=== PATIENT | female | born 1945 | race Caucasian/White ===

== ENCOUNTER 2025-07-23 13:05 | Emergency (ER) | payer MEDICARE, SELFPAY ==
--- NOTE | ~2025-07-23 | XR_ITS ---
EXAMINATION: XR chest 1V portable COMPARISON: No comparisons available. HISTORY: weakness, shortness of breath FINDINGS: COPD changes otherwise the lungs are clear No pneumothorax. Heart is normal size. Overlying artifact limits evaluation, probable large hiatal hernia. Bony thorax no acute abnormality. Miscellaneous: None Impression: No acute cardiopulmonary abnormality. Reviewed, dictated and finalized at location P. AL WORK MANAGER Impression: No acute cardiopulmonary abnormality.
[2025-07-23 13:14] VITALS: BP 90/51; PULSE 101; RESP 20; TEMP 37.1; O2SAT 94
--- OUTSIDE RECORDS SUMMARY | 2025-07-23 15:09 | XMS_ITS | Encounter Summary ---
Author Organization [employer] Address [address] [place] [address] Care Team Providers Care Injection Mold Tooling Technician Name Role Phone Marco A Higginbotham MD Primary Care Provider [phone]- [phone] Encounter Details Date Type Department Care Team (Late st Contact Info) Description 07/06/2005 Outpatient [facility] [place] [facility] [employer] [address] & [place] [address] Marco A Higginbotham MD [address] [place], [place] [id number] ELB/FOREARM/WRST INJURY NOS (Primary Dx) Social History Tobacco Use Types Packs/Day Years Used Date Smoking Tobacco: Never Assessed Comments Unknown Sex and Gender Information Value Date Recorded Sex Assigned at Not on file 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
--- OUTSIDE RECORDS SUMMARY | 2025-07-23 15:09 | XMS_ITS | Clinical Summary ---
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
[2025-07-23 15:40] VITALS: BP 113/70; PULSE 72; RESP 14; O2SAT 95
[2025-07-23 16:15] VITALS: BP 138/65; PULSE 71; RESP 20; O2SAT 95
[2025-07-23 16:57] LABS: Hematocrit 40.7 % (37.0-47.0); Hemoglobin 13.2 g/dL (12.0-15.0); Immature Granulocyte Percent A 0.4 % (0-0.5); Lymphocytes Absolute Auto 1.06 K/mm3 (0.9-3.2); Mean Corpuscular HGB Conc 32.4 g/dl (32-36); Mean Corpuscular Hemoglobin 30.0 pg (26-34); Mean Corpuscular Volume 92.5 fl (80-100); Nucleated Red Blood Cells Absolute Auto 0.000 K/mm3 (0.0-0.012); Nucleated Red Blood Cells Perc 0.0 % (0.0-0.2); Platelet Count Result 207 k/mm3 (150-375); Red Blood Count 4.40 M/mm3 (4.2-5.4); White Blood Count 8.4 K/mm3 (4.5-10.0)
[2025-07-23 17:07] LABS: Alanine Aminotransferase 14 U/L (6-35); Albumin Level 4.3 g/dL (3.5-5.1); Alkaline Phosphatase 63 U/L (38-126); Anion Gap 8 mmol/L (4-12); Aspartate Amino Transferase 29 U/L (14-36); Bilirubin,Total 0.7 mg/dL (0.2-1.3); Blood Urea Nitrogen 23 mg/dL (7-17); Calcium 9.6 mg/dL (8.4-10.2); Carbon Dioxide 20 mmol/L (22-30); Chloride 110 mmol/L (98-107); Estimated CRCL calculation 23 ml/min; Estimated Glomerular Filt Rate 33; Glucose 80 mg/dL (65-110); Potassium 4.1 mmol/L (3.4-5.0); Sodium 138 mmol/L (137-145); Total Protein 8.0 g/dL (6.3-8.2)
--- NOTE | 2025-07-23 17:16 | ECG_ITS ---
Test Date: 2025-07-23 17:34:14 Measurements Intervals [place] Rate: 76 P: 34 AL: 179 QRS: -8 QRSD: 88 T: 166 QT: 405 QTc: 457 Interpretive Statements SINUS RHYTHM LEFT VENTRICULAR HYPERTROPHY AND ST-T CHANGE T WAVE ABNORMALITY IN ANTEROLATERAL LEADS- CONSIDER ISCHEMIA ABNORMAL ECG No previous ECG available for comparison Electronically Signed On 07-23-2025 18:26:46 BSA OFFICER by Deepak Bryant D.O.
--- NOTE | 2025-07-23 17:16 | ED_ITS ---
HPI - Weakness General Chief complaint: Weakness Stated complaint: WEAKNESS Time Seen by Provider: 07/23/25 16:20 Source: patient and family Mode of arrival: wheelchair Limitations: no limitations History of Present Illness HPI Narrative: This is an 80-year-old female with history of CAD status post stents x7 who presents to the ED for weakness. Per daughters at bedside, patient had been complaining of sore throat for the past few days. They went to get her this morning to go shopping but she was apparently too weak to get around. She only walk about 5-10 steps before she felt like she did have the strength left to go. Patient also reports some intermittent shortness of breath. Denies fevers, chills. No known sick contacts. She is currently not on any medications and has not seen a physician in 7 years. Related Data Allergies Allergy/AdvReac Type Severity Reaction Status Date / Time bee venom protein (honey bee) Allergy Anaphylaxis Verified 07/23/25 13:06 tramadol Allergy Hives Verified 07/23/25 13:06 Review of Systems 2 Review of Systems: All systems reviewed & are unremarkable except as noted in HPI and below Exam 2 Narrative: APPEARANCE: No acute distress, nontoxic, resting in bed EYES: EOMI HEENT: Normocephalic, atraumatic, mild posterior oropharyngeal erythema RESPIRATORY: Diminished breath sounds with some scattered rales. No respiratory distress CARDIOVASCULAR: Regular rate and rhythm without murmurs rubs or gallops. ABDOMINAL: Soft, nontender, nondistended, no rebound or guarding MUSCULOSKELETAl: Moves all extremities. No clubbing, cyanosis or edema. NEURO: Awake and alert. Following commands, speech normal, no focal deficits SKIN:: Warm, dry. No rashes lesions or abrasions PSYCHIATRIC: Normal affect/mood, Course Vital Signs Vital signs: Vital Signs Temperature 98.7 F 07/23/25 13:14 Pulse Rate 101 H 07/23/25 13:14 Respiratory Rate 20 07/23/25 13:14 Blood Pressure 90/51 L 07/23/25 13:14 Pulse Oximetry 94 07/23/25 13:14 Temperature 98.7 F 07/23/25 13:14 Pulse Rate 80 07/23/25 18:05 Respiratory Rate 14 07/23/25 18:05 Blood Pressure 154/78 H 07/23/25 18:05 Pulse Oximetry 95 07/23/25 18:05 Oxygen Delivery Room Air 07/23/25 15:40 [facility] Narrative Medical decision making narrative: 80-year-old female Presenting for cough and shortness of breath with intermittent chest pain. On initial evaluation patient was in no acute distress afebrile, hemodynamic stable. Differentials include but are not limited to: ACS, CHF Exacerbation, COPD exacerbation, PE, PNA, PTX, bronchitis, viral syndrome, ACS Notable exam findings: Heart and lungs clear. Abdomen soft and nontender. Mild lower pharyngeal erythema I personally reviewed the patient's lab result. Notable lab findings: CBC without significant abnormalities. Creatinine elevated 1.5, no prior to compare. Troponin elevated at 0.05. COVID positive I personally reviewed the patient's images and interpret as follows: Chest x- ray: Normal cardiac silhouette, no consolidations, no pleural effusions, no pulmonary vascular congestion I personally reviewed the patient's EKGs: Normal sinus rhythm rate of 76, axis was, to inversions in anterolateral leads, no acute ST changes Patient is evidence of an NSTEMI which is likely secondary to her COVID. This may be a baseline troponin for her with there is no prior to compare. She does require Cardiology evaluation. However discussed with patient, and she has no desire to stay in the hospital at this time. She does demonstrate capacity and is understanding of the risks leaving at this time including irreversible damage to her, or even . Patient was sure that she is always welcome back to the ER if her symptoms are unchanged. Patient will be leaving AMA at this time. Differential Diagnosis Differential Diagnosis: ACS, CHF Exacerbation, COPD exacerbation, PE, PNA, PTX, bronchitis, viral syndrome, ACS Lab Data 07/23/25 16:50 07/23/25 16:50 Labs: Lab Results 07/23/25 Range/Units 16:50 WBC 8.4 (4.5-10.0) K/mm3 RBC 4.40 (4.2-5.4) M/mm3 Hgb 13.2 (12.0-15.0) g/dL Hct 40.7 (37.0-47.0) % MCV 92.5 (80-100) fl MCH 30.0 (26-34) pg MCHC 32.4 (32-36) g/dl RDW 14.3 (11.5-14.5) % Plt Count 207 (150-375) k/mm3 MPV 10.7 H (7.4-10.4) fl Immature Gran % (Auto) 0.4 (0-0.5) % Neut % (Auto) 73.4 H (45.5-73.1) % Lymph % (Auto) 12.6 L (18.3-44.2) % [place] % (Auto) 12.3 H (2.6-8.5) % Eos % (Auto) 0.2 (0-4.4) % Baso % (Auto) 1.1 (0.2-1.2) % Lymph # (Auto) 1.06 (0.9-3.2) K/mm3 [place] # (Auto) 1.0 H (0.1-0.6) K/mm3 Eos # (Auto) 0.0 (0-0.3) K/mm3 Baso # (Auto) 0.1 (0.0-0.1) K/mm3 Abs Immat Gran (auto) 0.03 (0.00-0.031) K/mm3 Absolute Neuts (auto) 6.2 (1.3-6.7) K/mm3 Absolute Nucleated RBC 0.000 (0.0-0.012) K/mm3 Nucleated RBC % 0.0 (0.0-0.2) % Sodium 138 (137-145) mmol/L Potassium 4.1 (3.4-5.0) mmol/L Chloride 110 H (98-107) mmol/L Carbon Dioxide 20 L (22-30) mmol/L Anion Gap 8 (4-12) mmol/L BUN 23 H (7-17) mg/dL Creatinine 1.50 H (0.7-1.0) mg/dL Estim Creat Clear Calc 23 ml/min Estimated GFR 33 L (59 - ) Glucose 80 (65-110) mg/dL Calcium 9.6 (8.4-10.2) mg/dL Total Bilirubin 0.7 (0.2-1.3) mg/dL AST 29 (14-36) U/L ALT 14 (6-35) U/L Alkaline Phosphatase 63 (38-126) U/L Troponin I 0.050 H* (0.000-0.034) ng/mL Total Protein 8.0 (6.3-8.2) g/dL Albumin 4.3 (3.5-5.1) g/dL Influenza A (RT-PCR) Negative (Negative) Influenza B (RT-PCR) Negative (Negative) RSV (RT-PCR) Negative (Negative) SARS-CoV-2 RNA (RT-PCR) Positive A (Negative) Imaging Data Radiologist's impression: ITS Impressions Chest X-Ray 07/23/25 17:28 Impression: No acute cardiopulmonary abnormality. Discharge Plan Discharge Clinical Impression: COVID-19, Non-ST elevation ID (NSTEMI) Patient Disposition: Left Against Medical Advice Condition: Stable Instructions: COVID-19 (Coronavirus Disease 2019) (ED) Additional Instructions: Please follow with Cardiology mohsen. Return to the ED for any new or worsening symptoms. For pain, discomfort or temperature greater than or equal to 100.8 ?F please alternate the following 2 medications as needed. First medication- acetaminophen/Tylenol- 1000mg every 6-8 hours as needed for above indications. Second medication- ibuprofen/Motrin-600mg every 6-8 hours as needed for above indication. Patient Language: Ukrainian Follow-up/Referrals: Niels Lui MD [Physician, Cardiology] PHYSICIAN,ASSISTANT PROFESSOR OF GEOGRAPHY [Primary Care Provider, Internal Medicine]
--- NOTE | 2025-07-23 17:28 | PC.NURSE ---
Lab called to add on ordered trop.
[2025-07-23 17:33] LABS: Influenza A QL RT-PCR Negative (Negative); Influenza B QL RT-PCR Negative (Negative); RSV RNA, RT-PCR Negative (Negative); SARS-CoV-2 RNA PCR Positive (Negative)
[2025-07-23] MEDS: ACETAMINOPHEN 500 MG TABLET 1000 MG PO (17:55)
[2025-07-23 18:00] LABS: Troponin I 0.050 ng/mL (0.000-0.034)
[2025-07-23 18:05] VITALS: BP 154/78; PULSE 80; RESP 14; O2SAT 95
--- OUTSIDE RECORDS SUMMARY | 2025-07-23 18:23 | XMS_ITS | Encounter Summary ---
Author Organization [employer] Address [address] [place] [address] Care Team Providers Care Water Purifier Operator Name Role Phone Marco A Higginbotham MD Primary Care Provider [phone]- [phone] Encounter Details Date Type Department Care Team (Late st Contact Info) Description 07/06/2005 Outpatient [facility] for [employer] [address] & [place] [address] Marco A Higginbotham MD [address] [place], [place] [id number] ELB/FOREARM/WRST INJURY NOS (Primary Dx) Social History Tobacco Use Types Packs/Day Years Used Date Smoking Tobacco: Never Assessed Comments Unknown Sex and Gender Information Value Date Recorded Sex Assigned at Not on file 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
--- OUTSIDE RECORDS SUMMARY | 2025-07-23 18:23 | XMS_ITS | Clinical Summary ---
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
--- OUTSIDE RECORDS SUMMARY | 2025-07-23 18:23 | XMS_ITS | Clinical Summary ---
Author Organization [facility] Address [address] [place] [address] Care Team Providers Care Business Process Specialist Name Role Phone Unavailable Primary Care Provider Unavailabl e Social History Tobacco Use Types Packs/Day Years Used Date Smoking Tobacco: Never Assessed Comments Unknown Sex and Gender Information Value Date Recorded Sex Assigned at Not on file Legal Sex Female 8:45 AM CDT Gender Identity Not on file Sexual Orientation Not on file Plan of Treatment Health Maintenance Due Date Last Done Comments DTaP, Tdap and Td Vaccines ( 1 - Tdap) 1962 Pneumococcal Vaccine: 50+ Ye ars (1 of 1 - PCV) 1993 Zoster Vaccines (1 of 2) 1993 Annual Medicare Wellness Visit 02/23/2008 Dexa Scan (General) 02/23/2008 RSV Immunization or 60+ Years (1 - 1-dose 75+ series) 2018 COVID-19 Vaccine (2024-2 6 season) 2025 Influenza Adult (#1) 2025 Hepatitis A Vaccines Aged Out No long er eligible based on patient's age to complete this topic Meningococcal B Vaccine Aged Out No l onger eligible based on patient's age to complete this topic Meningococcal Vaccine Aged Out No jigar sav eligible based on patient's age to complete this topic RSV Immunizations Under 20 Months Aged Out No longer eligible based on patient's age to complete this topic Insurance [facility] MEDIC[facility]
--- OUTSIDE RECORDS SUMMARY | 2025-07-23 18:23 | XMS_ITS | Clinical Summary ---
Author Organization [facility] Address [address] [place] [address] Care Team Providers Care Senior Environmental Engineer Name Role Phone Jackelin Giordano APRN-SECURITY COMPLIANCE ENGINEER Primary Care Provider Source Comments [facility],non-owned Affiliates and Associated Physician Practices is amultiple site organization consisting of ambulatory clinics and hospital sitesin [place], [place], [place] and [place]. This disclosure is being madepursuant to the Care Everywhere program and may not contain all information available regarding this patient. Last updated 18.[facility] Allergies Active Allergy Reactions Criticality Noted Date Comments Bee Venom Swelling 03/12/2018 Albumin Nausea and/or Vomiting 03/12/2018 Methotrexate Psychiatric Medium 11/12/2018 Tramadol Urticaria Medium 03/12/2018 Medications * Be aware that medications may not be up to date on this document. Alwaysverify current medications with the patient. montelukast (SINGULAIR) 10 MG tablet Take 10 mg by mouth at bedtime Active LEVOTHYROXINE SODIUM PO Take 100 mcg by mouth daily before breakfast Active budesonide-form oterol (SYMBICORT) 160-4.5 MCG/ACT inhaler Inhale 2 puffs by mouth as needed Active nitroGLYCERIN (NITROSTAT) 0.4 MG tablet Dissolve 0.4 mg under the tongue as needed for Angina Active Ibuprofen 100 MG Take 200 mg by mouth as directed 4 tabs once daily Active ibuprofen (ADVIL) 200 MG capsule Take 200 mg by mouth at bedtime Active ASPIRIN 81 PO Take 1 tablet by mouth once daily Active fluticasone-alexander anterol (BREO ELLIPTA) 100-25 MCG/INH inhaler Inhale 1 puff by mouth once daily Administer at the same time each day. Rinse mouth after using Active METOPROLOL SUCCINATE ER PO Take 25 mg by mouth as directed 1/2 tab daily Active famotidine (PEPCID) 40 MG tabletIndicatio ns:Encounter for long-term (current) use of high-risk medication Take 1 tablet by mouth once daily 30 tablet 2 8 Active mycophenolate (CELLCEPT) 500 MG tablet Take 1-3 tablets twice daily according to dosing instructions from composing room machinist apprentice. 30 day supply. 180 tablet 1 9 Active clobetasol (TEMOVATE) 0.05 % ointment Apply to affected areas of skin twice daily. 30 days supply. 60 g 2 9 Active raNITIdine (ZANTAC) 150 MG tablet Take 1 tablet by mouth 2 times daily 60 tablet 2 9 Active hydrOXYzine hcl (ATARAX) 50 MG tabletIndicatio ns:Bullous pemphigoid (HCC),Generaliz ed morphea Take 1-3 tablets daily as needed for itching. Can make you drowsy. Take with caution. 30 day supply. 90 tablet 1 9 Active Active Problems Problem Noted Date Diagnosed Date Healthcare maintenance 11/15/2018 Overview (11/15/2018): Women's Routine Health Maintenance - BRCA/genetic counselling: NA - Breast cancer screening: declined - Cervical cancer screening: deferred d/t age - CRC screening: declined - Tobacco use: current smoker (64 pack year history) - Lung cancer screening: last CT 06/2018; repeat CT in 06/2019 - Diabetes screening: will request records - Obesity/physical activity/diet counseling: discussed - Fall prevention: NA - Osteoporosis screening: declined - Hep C: will request records - Chlamydia: NA - Gonorrhea: NA - HIV: NA - Lipid screening: will request records - Statin: declined - ASA: 81 mg daily - Depression screening: discussed - EtOH abuse screening (more than 3 drinks in one day or 7 in a week w/n the past year): 0 - Intimate partner violence (safe at home; Hurt, Insult, Threaten, Scream): denies - Dental exam: several years ago; declined referral - Eye exam: few years ago; declined referral - Immunizations - HPV: NA - Influenza: will request records - Prevnar: will request records - Pneumovax: will request records - TdaP/Td: will request records - Zoster: will request records -Advanced Directive: discussed Difficulty sleeping 11/15/2018 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 Bullous pemphigoid 08/07/2018 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 Overview (11/15/2018): without evidence of acute cholecystitis Right lower lobe pulmonary nodule 06/08/2018 Overview (11/15/2018): CT 06/2018 - 4 mm right lower lobe pulmonary nodule - repeat CT in 12 months Hypothyroidism CAD (coronary artery disease), [place] coronary a rtery COPD (chronic obstructive pulmonary disease) GERD (gastroesophageal reflux disease) Tobacco use Family History Medical History Relation Name Comments Cancer - Other Brother 1 CAD (Coronary Artery Disease) Brother 2 major [place] Arthritis - Osteo Daughter 1 Arthritis - Osteo Daughter 2 SIDS Daughter 4 Cancer - Other Father bone Cirrhosis Maternal Grandmother liver CAD (Coronary Artery Disease) Sister 1 bypass (quadruple?) Diabetes - Type 2 Sister 1 Other - Neurologic Son 1 mentally challenged Asthma Neg Hx CVA Neg Hx Cancer - Breast Neg Hx Cancer - Skin, Melanoma Neg Hx Eczema Neg Hx Hemophilia Neg Hx Psoriasis Neg Hx Relation Name Status Comments Brother 1 Brother 2 Daughter 1 Alive Daughter 2 Alive Daughter 3 Alive Daughter 4 Father Maternal Grandfather Maternal Grandmother Mother Paternal Grandfather Paternal Grandmother Sister 1 Alive Sister 2 Alive Sister 3 Sister 4 Son 1 Alive Son 2 Alive Social History Tobacco Use Types Packs/Day Years Used Date Smoking Tobacco: Every Day Cigarettes 1 70 Started: 08/07/1955 Smokeless Tobacco: Never Tobacco Cessation:Ready to Q uit: No; Counseling Given: Yes Alcohol Use Standard Drinks/Week Comments Yes 0 (1 standard drink = 0.6 oz pur e alcohol) very seldom; holidays Comments Unknown Sex and Gender Information Value Date Recorded Sex Assigned at Not on file Legal Sex Female 9:10 AM CDT Gender Identity Not on file Sexual Orientation Not on file Last Filed Vital Signs Vital Sign Reading Time Taken Comments Blood Pressure 104/60 11/15/2018 10:58 AM CDT Pulse 91 11/15/2018 10:58 AM CDT Temperature 36.2 C (97.1 F) 11/15/2018 10:58 AM CDT Respiratory Rate - - Oxygen Saturation 99% 11/15/2018 10:58 AM CDT Inhaled Oxygen Concentration - - Weight 65.8 kg (145 lb) 11/15/2018 10:58 AM CDT Height - - Body Mass Index - - Plan of Treatment Health Maintenance Due Date Last Done Comments BONE DENSITY TESTING 1943 DTAP/TDAP/TD VACCINES (1 - Tdap) 1962 PNEUMOCOCCAL VACCINE 50+ (1 of 2 - PCV) 1962 ZOSTER VACCINE (1 of 2) 1993 Respiratory Syncytial Virus (RSV) Vaccine Pt: or over 60 yrs (1 - 1-dose 75+ series) 2018 DEPRESSION SCREENING 08/07/2024 COVID-19 VACCINE (1 - 2024-2 6 season) 2025 INFLUENZA VACCINE (#1) 2025 HEPATITIS B VACCINE Aged Out No longe r eligible based on patient's age to complete this topic HIB VACCINE Aged Out No longer eligi ble based on patient's age to complete this topic HPV VACCINE Aged Out No longer eligi ble based on patient's age to complete this topic MENINGOCOCCAL (Group B) VACC INE SHARED DECISION-MAKING Aged Out No longer eligibl e based on patient's age to complete this topic MENINGOCOCCAL GROUPS A/C/Y/W VACCINE Aged Out No longer eligible b ased on patient's age to complete this topic [place] [phone] MEDICARE Care Teams Senior Environmental Engineer Relationship Specialty Start Date End Date Jackelin Giordano APRN-SECURITY COMPLIANCE ENGINEER [address] [place] [address] PCP - General 01/10/19
== END 2025-07-23 18:48 | disposition left against medical advice (07) ==
PROVIDERS: Emergency Provider Student in an Organized Health Care Education/Training Program
DX: I21.4 Non-ST elevation (NSTEMI) myocardial infarction (principal); U07.1 COVID-19; I25.10 Atherosclerotic heart disease of native coronary artery without angina pectoris; Z20.822 Contact with and (suspected) exposure to COVID-19
CPT/HCPCS: 36415; 71045; 80053; 84484; 85025; 87637; 93005; 99284; A9270